=== PATIENT | male | born 1995 ===

== ENCOUNTER → 2021-03-30 09:57 | Outpatient (CLI) | payer OTHER, SELFPAY ==
[2021-03-30 10:32] LABS: COVID19 -Nasal RAPID Negative (Negative)
== END ==
PROVIDERS: Visit Provider Physician Assistant
DX: Z20.822 Contact with and (suspected) exposure to COVID-19 (principal); R05 Cough; R09.81 Nasal congestion; R53.83 Other fatigue
CPT/HCPCS: 87635

== ENCOUNTER → 2024-06-06 15:27 | Outpatient (CLI) | payer OTHER, SELFPAY | PROVIDERS: Visit Provider Physician Assistant Surgical | DX: R30.0 Dysuria (principal); R35.0 Frequency of micturition | CPT/HCPCS: 87086; 87210 ==